=== PATIENT | male | born 2000 | race Caucasian/White ===

== ENCOUNTER 2019-04-26 01:09 | Emergency (ER) | payer OTHER ==
[~2019-04-26] VITALS: Ht 182.9 cm; Wt 72.6 kg
[2019-04-26 01:15] VITALS: BP 147/86
[2019-04-26] MEDS ORDERED: KEFLEX500 M1 PO (01:52)
== END 2019-04-26 02:16 | disposition home or self-care (01) ==
LOC: M.ERS 01:09
DX: S81.011A Laceration without foreign body, right knee, initial encounter (principal); W25.XXXA Contact with sharp glass, initial encounter; Y93.89 Activity, other specified; Y92.89 Other specified places as the place of occurrence of the external cause; Y99.8 Other external cause status

== ENCOUNTER 2020-09-30 08:03 | Emergency (ER) | payer OTHER ==
[~2020-09-30] VITALS: Ht 182.9 cm; Wt 73.5 kg
[~2020-09-30 08:03] MED LIST: KEFLEX500 M1 PO
[2020-09-30] MEDS ORDERED: HYDROCODON-ACE1 EAC7 PO (08:57)
[2020-09-30 09:05] VITALS: BP 157/90
== END 2020-09-30 09:06 | disposition home or self-care (01) ==
LOC: M.ERS 08:03
DX: L55.9 Sunburn, unspecified (principal)